=== PATIENT | female | born 2000 | race Caucasian/White ===

== ENCOUNTER 2019-10-15 03:32 | Emergency (ER) | payer BC, OTHER ==
[2019-10-15] MEDS ORDERED: Ondansetron INJ* 2 MG/ML VIAL ONE (04:40)
[2019-10-15 04:46] LABS: Influenza A Molecular Negative (Negative); Influenza B Molecular Negative (Negative)
[2019-10-15] MEDS: NS 0.9% 1000 ML** 1,000 ML IV ONE ×2 (04:55→06:33)
[2019-10-15 04:56] LABS: ABS Basophils 0.1 10^3/ul (0-0.2); ABS Eosinophils 0.1 10^3/ul (0-0.6); ABS Lymphocytes 1.8 10^3/ul (1.0-4.8); ABS Monocytes 0.6 10^3/ul (0-0.8); ABS Neutrophils 11.1 10^3/ul (1.5-7.7); Eosinophil % 0.7 %; Hematocrit 38 % (35-47); Hemoglobin 12.9 g/dL (12.0-16.0); Lymphocyte % 13.2 %; Mean Corpuscular HGB Conc 34 g/dL (31-36); Mean Corpuscular Hemoglobin 28 pg (27-31); Mean Corpuscular Volume 84 fL (80-97); Mean Platelet Volume 9.7 fL (7.4-10.4); Platelet Count 232 10^3/uL (150-450); Red Blood Count 4.57 10^6 /uL (3.70-4.87); Red Cell Distribution Width 15 % (10-15); White Blood Count 13.7 10^3/uL (3.5-10.8)
[2019-10-15] MEDS: Ondansetron INJ* 2 MG/ML VIAL IV ONE ×2 (04:56→06:33)
[2019-10-15 05:01] LABS: INR 1.02 (0.82-1.09)
[2019-10-15 05:26] LABS: ALT 6 U/L (7-52); AST 16 U/L (13-39); Albumin 3.8 g/dL (3.2-5.2); Albumin/Globulin Ratio 0.9 (1-3); Alkaline Phosphatase 53 U/L (34-104); Anion Gap 10 mmol/L (2-11); BUN/Creatinine Ratio 13.6 (8-20); Blood Urea Nitrogen 12 mg/dL (6-24); C Reactive Protein 22.97 mg/L (<8.01); CO2 Carbon Dioxide 22 mmol/L (22-32); Calcium 9.4 mg/dL (8.6-10.3); Chloride 105 mmol/L (101-111); EGFR African American 100.2 (>60); EGFR Non-African American 82.8 (>60); Globulin 4.1 g/dL (2-4); Glucose 108 mg/dL (70-100); Potassium 4.1 mmol/L (3.5-5.0); Sodium 137 mmol/L (135-145); Total Protein 7.9 g/dL (6.4-8.9)
[2019-10-15 05:42] LABS: HCG Pregnancy < 0.60 mIU/mL
--- NOTE | 2019-10-15 06:18 | ED ---
Abdominal Pain/Female - HPI Summary HPI Summary: Patient is an 17 y/o F presenting to [facility] with a chief complaint of sudden onset umbilical abdominal pain onset around 0000. She reports that she began feeling unwell around 2300 last night and went to bed. Around 0000 she developed stabbing and burning abdominal pain which prevented her from sleeping. She then became nauseous with multiple episodes of vomiting. She had normal bowel movements this morning. She denies any fevers. Symptoms currently rated 7/10 in severity. She has not taken any medications for treatment HOISTER. She states she is susceptible to C diff. LNMP: missed in September as she had changed control, but she had some spotting and is supposed to have her period in two weeks. PMHx: back surgery for scoliosis. FHx: diabetes. Nonsmoker , no EtOH, no substance use. Medications include control and crohn's medication. Allergies noted. - History of Current Complaint Chief Complaint: EDAbdPain Stated Complaint: ABD PAIN Time Seen by Provider: 10/15/19 04:38 Hx Obtained From: Patient Onset/Duration: Sudden Onset, Lasting Hours, Still Present Timing: Constant Severity Initially: Mild Severity Currently: Moderate Pain Intensity: 7 Pain Scale Used: 0-10 Numeric Location: Epigastric, Umbilical Radiates: No Character: Sharp Aggravating Factor(s): Nothing Alleviating Factor(s): Nothing Associated Signs and Symptoms: Positive: Nausea, Vomiting. Negative: Fever Allergies/Adverse Reactions: Allergies Allergy/AdvReac Type Severity Reaction Status Date / Time No Known Allergies Allergy Verified 10/15/19 06:31 Home Medications: Home Medications Ondansetron ODT TAB* [Zofran 4 MG Odt TAB*] 4 mg PO Q6H PRN #12 tab.odt [Rx] PMH/Surg Hx/FS Hx/Imm Hx Endocrine/Hematology History: Denies: Hx Diabetes Respiratory History: Denies: Hx Asthma GI History: Reports: Other GI Disorders - C diff sensitivity with antibiotics Musculoskeletal History: Reports: Hx Scoliosis - Surgical History Surgical History: Yes Surgery Procedure, Year, and Place: spinal surgery for scoliosis August 2018 Infectious Disease History: Denies: Traveled Outside the [place] in Last 30 Days - Family History Known Family History: Positive: Diabetes - Social History Alcohol Use: None Hx Substance Use: No Substance Use Type: Reports: None Hx Tobacco Use: No Smoking Status (MU): Never Smoked Tobacco - Additional Comments History Additional Comments: C diff sensitivity with antibiotics, back surgery for scoliosis Review of Systems - ROS Summary Review of Systems Summary: control Negative: Fever Positive: Abdominal Pain - umbilical, Vomiting, Nausea. Negative: Diarrhea, Other - constipation All Other Systems Reviewed And Are Negative: Yes Physical Exam - Summary Physical Exam Summary: General: Mildly ill-appearing, Well-developed, Well-nourished female. No acute distress. HEENT: Normocephalic, Atraumatic. Eyes: Conjuctiva normal, PERRL. Oropharynx: Clear, mucous membranes moist, (-) exudates. Neck: Soft, FROM, (-) lymphadenopathy, (-) thyromegaly, (-) JVD. Cardiovascular: Normal sinus rhythm, (-) murmur. Lungs: Clear to auscultation bilaterally (-) wheezes, (-) rales, (-) rhonchi. Abdomen: Soft, mild epigastric and umbilical tenderness to palpation, non- distended, (-) organomegaly, normal bowel sounds. Back: (-) CVA tenderness Extremities: No edema. Skin: Warm, dry, (-) rash. Neuro: Alert and oriented x3, moves all extremities equally. No ataxia. No gait disturbance. No sensory deficit. Normal strength, normal sensation. Psychiatric: Mood normal, affect normal. Triage Information Reviewed: Yes Vital Signs On Initial Exam: Initial Vitals Pulse BP Pulse Ox 97 134/102 99 10/15/19 04:23 10/15/19 04:23 10/15/19 04:23 Vital Signs Reviewed: Yes Procedures - Sedation Patient Received Moderate/Deep Sedation with Procedure: No Diagnostics - Vital Signs Vital Signs Temp Pulse Resp BP Pulse Ox 10/15/19 05:46 98.1 F 88 18 123/75 98 10/15/19 05:00 84 99 10/15/19 04:25 98 100 10/15/19 04:23 97 134/102 99 - Laboratory Lab Results: Lab Results 10/15/19 10/15/19 10/15/19 Range/Units 04:15 04:50 04:50 WBC 13.7 H (3.5-10.8) 10^3/uL RBC 4.57 (3.70-4.87) 10^6 /uL Hgb 12.9 (12.0-16.0) g/dL Hct 38 (35-47) % MCV 84 (80-97) fL MCH 28 (27-31) pg MCHC 34 (31-36) g/dL RDW 15 (10-15) % Plt Count 232 (150-450) 10^3/uL MPV 9.7 (7.4-10.4) fL Neut % (Auto) 81.2 % Lymph % (Auto) 13.2 % Plumas % (Auto) 4.3 % Eos % (Auto) 0.7 % Baso % (Auto) 0.6 % Absolute Neuts (auto) 11.1 H (1.5-7.7) 10^3/ul Absolute Lymphs (auto) 1.8 (1.0-4.8) 10^3/ul Absolute Monos (auto) 0.6 (0-0.8) 10^3/ul Absolute Eos (auto) 0.1 (0-0.6) 10^3/ul Absolute Basos (auto) 0.1 (0-0.2) 10^3/ul Absolute Nucleated RBC 0.0 10^3/ul Nucleated RBC % 0.0 INR (Anticoag Therapy) (0.82-1.09) Sodium 137 (135-145) mmol/L Potassium 4.1 (3.5-5.0) mmol/L Chloride 105 (101-111) mmol/L Carbon Dioxide 22 (22-32) mmol/L Anion Gap 10 (2-11) mmol/L BUN 12 (6-24) mg/dL Creatinine 0.88 (0.51-0.95) mg/dL Est GFR ( Amer) 100.2 (>60) Est GFR (Non-Af Amer) 82.8 (>60) BUN/Creatinine Ratio 13.6 (8-20) Glucose 108 H (70-100) mg/dL Lactic Acid (0.5-2.0) mmol/L Calcium 9.4 (8.6-10.3) mg/dL Total Bilirubin 0.30 (0.2-1.0) mg/dL AST 16 (13-39) U/L ALT 6 L (7-52) U/L Alkaline Phosphatase 53 (34-104) U/L C-Reactive Protein 22.97 H (<8.01) mg/L Total Protein 7.9 (6.4-8.9) g/dL Albumin 3.8 (3.2-5.2) g/dL Globulin 4.1 H (2-4) g/dL Albumin/Globulin Ratio 0.9 L (1-3) Lipase 15 (11.0-82.0) U/L Beta HCG, Quant < 0.60 mIU/mL Influenza A (Rapid) Negative (Negative) Influenza B (Rapid) Negative (Negative) 10/15/19 10/15/19 Range/Units 04:50 04:50 WBC (3.5-10.8) 10^3/uL RBC (3.70-4.87) 10^6 /uL Hgb (12.0-16.0) g/dL Hct (35-47) % MCV (80-97) fL MCH (27-31) pg MCHC (31-36) g/dL RDW (10-15) % Plt Count (150-450) 10^3/uL MPV (7.4-10.4) fL Neut % (Auto) % Lymph % (Auto) % [place] % (Auto) % Eos % (Auto) % Baso % (Auto) % Absolute Neuts (auto) (1.5-7.7) 10^3/ul Absolute Lymphs (auto) (1.0-4.8) 10^3/ul Absolute Monos (auto) (0-0.8) 10^3/ul Absolute Eos (auto) (0-0.6) 10^3/ul Absolute Basos (auto) (0-0.2) 10^3/ul Absolute Nucleated RBC 10^3/ul Nucleated RBC % INR (Anticoag Therapy) 1.02 (0.82-1.09) Sodium (135-145) mmol/L Potassium (3.5-5.0) mmol/L Chloride (101-111) mmol/L Carbon Dioxide (22-32) mmol/L Anion Gap (2-11) mmol/L BUN (6-24) mg/dL Creatinine (0.51-0.95) mg/dL Est GFR ( Amer) (>60) Est GFR (Non-Af Amer) (>60) BUN/Creatinine Ratio (8-20) Glucose (70-100) mg/dL Lactic Acid 1.0 (0.5-2.0) mmol/L Calcium (8.6-10.3) mg/dL Total Bilirubin (0.2-1.0) mg/dL AST (13-39) U/L ALT (7-52) U/L Alkaline Phosphatase (34-104) U/L C-Reactive Protein (<8.01) mg/L Total Protein (6.4-8.9) g/dL Albumin (3.2-5.2) g/dL Globulin (2-4) g/dL Albumin/Globulin Ratio (1-3) Lipase (11.0-82.0) U/L Beta HCG, Quant mIU/mL Influenza A (Rapid) (Negative) Influenza B (Rapid) (Negative) Result Diagrams: 10/15/19 04:50 10/15/19 04:50 Lab Statement: Any lab studies that have been ordered have been reviewed, and results considered in the medical decision making process. Re-Evaluation - Re-Evaluation First Eval Re-Evaluation Time: 06:30 Change: Improved Comment: I discussed all results and nausea has resolved. Discussed all symptoms that warrant return to the ED. Abdominal Pain Fem Course/Dx - Course Course Of Treatment: 18-year-old female presents from home with abdominal pain and vomiting. She states she started with abdominal pain about 11. Went to bed but was unable to sleep with severe pain. Then started vomiting. No diarrhea. She states she had 2 normal bowel movements yesterday. She does have a history of Crohn's disease. Denies any blood per rectum. No fevers. Patient had a in abnormal period last month with a change in control. On physical exam she has tenderness in the epigastric and umbilical areas to palpation. Mildly ill-appearing. Patient given IV fluids and Zofran. Patient had significant improvement in her symptoms. . Prescription of Zofran called in. Advised clear fluids. Advance slowly as tolerated. Follow up with PCP. Follow sooner for any worsening symptoms. - Diagnoses Provider Diagnoses: Viral syndrome Discharge ED - Sign-Out/Discharge Documenting (check all that apply): Patient Departure - discharge - Discharge Plan Condition: Stable Disposition: HOME Prescriptions: Ondansetron ODT TAB* [Zofran 4 MG Odt TAB*] 4 mg PO Q6H PRN #12 tab.odt PRN Reason: Nausea Patient Education Materials: Viral Syndrome (ED) Referrals: [facility] [Outside] - 3 Days Additional Instructions: Follow up with your primary care provider in 2-3 days. Return to the emergency department for any new or worsening symptoms. - Billing Disposition and Condition Condition: STABLE Disposition: Home - Attestation Statements Document Initiated by Tiffanieibe: Yes Documenting Scribe: Adore Pike Provider For Whom Scribe is Documenting (Include Credential): Shelby Taylor MD Scribe Attestation: Adore Mcghee, scribed for Shelby Taylor MD on 10/19/19 at 2158. Scribe Documentation Reviewed: Yes Provider Attestation: The documentation as recorded by the Adore shaw accurately reflects the service I personally performed and the decisions made by me, Shelby Taylor MD Status of Scribe Document: Viewed
[2019-10-15 09:30] LABS: Urine Appearance Cloudy; Urine Bilirubin Negative (Negative); Urine Blood Negative (Negative); Urine Color Yellow; Urine Glucose Negative (Negative); Urine Ketones Trace (Negative); Urine Nitrite Negative (Negative); Urine Protein Negative (Negative); Urine Specific Gravity 1.024 (1.010-1.030); Urine Urobilinogen Negative (Negative)
[2019-10-15 09:32] LABS: Urine Bacteria Absent (Absent); Urine Red Blood Cell 1+(3-5/hpf) (Absent); Urine Squamous Epithelial Cell Present (Absent); Urine White Blood Cell Trace(0-5/hpf) (Absent)
[2019-10-15 10:05] VITALS: BP 113/76
== END 2019-10-15 10:03 | disposition home or self-care (01) ==
LOC: ED 03:32
DX: B34.9 Viral infection, unspecified (principal); R11.2 Nausea with vomiting, unspecified
CPT/HCPCS: 36415; 80053; 81003; 81015; 83605; 83690; 84702; 85025; 85610; 86140; 87077; 87086; 87186; 96361; 96374; 99282; J2405